=== PATIENT | female | born 1990 | race Caucasian/White ===

== ENCOUNTER 2016-08-26 20:30 | Emergency (ER) | payer MEDICAID ==
[~2016-08-26] VITALS: Ht 157.5 cm; Wt 111.0 kg
[~2016-08-26 20:30] MED LIST: CALC600T PO; FERR27TA PO; prenatals
[2016-08-26 20:34] VITALS: Ht 157.5 cm; Wt 111.0 kg
[2016-08-26] MEDS ORDERED: ACET500C5 PO (23:25)
[2016-08-26] MEDS ORDERED: IBUP-1542 PO (23:25)
[2016-08-26] MEDS ORDERED: PENICILLIN G BENZ 1.2 MIL UNIT SYG IM ONE (23:30)
--- NOTE | 2016-08-26 23:31 | ERD ---
ER Documentation Chief Complaint Date/Time DATE: 08/26/16 TIME: 23:26 Chief Complaint fever, cough, sore throat dizziness x 7 days HPI Patient is a 25-year-old female who presents to the ED with fever, sore throat, pain with swallowing and body aches 7 days. She states that she has had fevers of 101 at home. She has been taking Tylenol with relief of fevers. No fevers today. She denies cough, shortness of breath or difficulty breathing. She denies leg pain or swelling. She also complains of slight dizziness associated with her pain. She has had many sick contacts around her. She does not have difficulty speaking or swallowing. She is tolerating po fluids. She denies abdominal pain, nausea, vomiting or diarrhea. She denies recent travel. She denies other symptoms. ROS All systems reviewed and are negative except as per history of present illness. Medications Home Meds Active Scripts Oseltamivir Phosphate* (Tamiflu*) 75 Mg Capsule, 75 MG PO BID for 5 Days, CAP Prov:SUSIE BOO PA-C 08/27/16 Ibuprofen* (Motrin*) 600 Mg Tab, 600 MG PO Q6, #30 TAB Prov:ROGER ENGLE PA-C 08/26/16 Acetaminophen* (Tylophen*) 500 Mg Capsule, 1 CAP PO Q6H Y for PAIN AND OR ELEVATED TEMP, #20 CAP Prov:ROGER ENGLE PA-C 08/26/16 Reported Medications Calcium Carbonate (Calcium) 600 Mg Tablet, 600 MG PO DAILY 12/12/13 Ferrous Sulfate (Iron) 1 Tab Tablet, 1 TAB PO DAILY 12/12/13 [prenatals] No Conflict Check 05/12/13 Allergies Allergies: Coded Allergies: No Known Allergy (Unverified , 05/12/13) PMhx/Soc History of Surgery: Yes ( x1) Anesthesia Reaction: No Hx Neurological Disorder: No Hx Respiratory Disorders: No Hx Cardiac Disorders: No Hx Psychiatric Problems: No Hx Miscellaneous Medical Probl: Yes (strep throat) Hx Alcohol Use: No Hx Substance Use: No Hx Tobacco Use: No Smoking Status: Never smoker FmHx Family History: No coronary disease, No diabetes, No other Physical Exam Vitals Vital Signs Date Time Temp Pulse Resp B/P Pulse Ox O2 Delivery O2 Flow Rate FiO2 08/27/16 00:30 98.7 08/26/16 20:34 993.1 103 18 127/69 97 Physical Exam GENERAL: Well-developed, well-nourished female. Appears in no acute distress. HEAD: Normocephalic, atraumatic. ENT: Moist mucous membranes. No uvula deviation. No kissing tonsils, enlarged erythematous tonsils with. No exudates. TM clear, no erythema or drainage or bulging. no mastoid tenderness. NECK: Supple. No lymphadenopathy or thyromegaly. No meningismus. negative kernig. negative brudinski. LUNG: Clear to auscultation bilaterally. No rhonchi, wheezing, rales or coarse breath sounds. HEART: Regular rate and rhythm. No murmurs, rubs or gallops. Extremities: Equal pulses bilaterally. No peripheral clubbing, cyanosis or edema. No unilateral leg swelling. negative gene sign. NEUROLOGIC: Alert and oriented. Moving all four extremities. 5/5 strength in all extremities. Normal speech. Steady gait. CN 2 through 12 intact SKIN: Normal color. Warm and dry. No rashes or lesions. Capillary refill < 2 seconds Results 24 hrs Current Medications Medications (Trade) Dose Ordered Sig/Susan Route PRN Reason Start Time Stop Time Status Last Admin Dose Admin Penicillin G Benzathine (Bicillin La) 1,200,000 units ONCE ONCE IM 08/26/16 23:30 08/26/16 23:31 DC 08/26/16 23:58 Procedures/MDM ER COURSE: I kept the patient and/or family informed of laboratory and diagnostic imaging results throughout the emergency room course. MEDICATIONS: Penicillin G benzathine given in the ED. Patient tolerated medication well with no adverse reaction. MEDICAL DECISION MAKING: This is a 25-year-old female who presents with sore throat, body aches and fever. Vital signs were reviewed. Patient is afebrile. Patient is not hypoxic. She is not toxic and mildly ill-appearing. Patient likely has pharyngitis versus tonsillitis. Low suspicion for peritonsillar abscess, strep pharyngitis , mononucleosis, dental abscess. Low suspicion for pneumonia, PE, pneumothorax , ACS, epiglottitis, obstruction, TB, pertussis, meningitis, sepsis. I do not think a chest x-ray is warranted at this time as lung examination is within normal limits and patient does not have a cough. Patient has a pulse of 102, likely related to dehydration. I have low suspicion for PE or DVT as patient does not have risk factors, no leg pain or swelling or recent travel and denies cough, sob or chest pain. DISCHARGE: At this time, patient is stable for discharge and outpatient management with no new complaints during the ER course. Patient was sent home with Tylenol and ibuprofen. Patient will be discharged home with instructions to recheck for new or worsening symptoms such as fever, nausea, weakness, LOC and to follow up with primary care in the next 1-2 days. Patient was advised to return to the ER for any new or worsening symptoms. Plan was discussed and patient and/or family understands and agrees. Home instructions were given. Departure Diagnosis: Primary Impression: Tonsillitis Condition: Stable Patient Instructions: When Your Child Has Pharyngitis or Tonsillitis Additional Instructions: Call your primary care doctor TOMORROW for an appointment during the next 1-2 days.See the doctor sooner or return here if your condition worsens before your appointment time. ROGER ENGLE PA-C Aug 26, 2016 23:31
[2016-08-27 00:30] VITALS: TEMP 98.7
[2016-08-27] MEDS ORDERED: OSLT75C PO (19:20)
== END 2016-08-27 00:28 | disposition home or self-care (01) ==
LOC: FTE 20:30
DX: J03.90 Acute tonsillitis, unspecified (principal)
CPT/HCPCS: 96372; J0561; Z7502

== ENCOUNTER 2016-08-27 17:38 | Emergency (ER) | payer MEDICAID ==
[~2016-08-27] VITALS: Ht 165.1 cm; Wt 112.1 kg
[~2016-08-27 17:38] MED LIST changes: +ACET500C5 PO; +IBUP-1542 PO
[2016-08-27 17:41] VITALS: Ht 165.1 cm; Wt 112.1 kg
[2016-08-27] MEDS ORDERED: KETOROLAC 30 MG INJ IM STA (18:28)
--- NOTE | 2016-08-27 18:38 | ERD ---
ER Documentation Chief Complaint Date/Time DATE: 08/27/16 TIME: 18:36 Chief Complaint HAS FLU,BODY ACHES,ST, COUGH, HERE YESTERDAY C/O SAME TREATED STREP PHARIN HPI This patient is a 25-year-old female with no significant medical history presenting to the emergency department for chills which began today. Additionally the patient reports myalgias which been ongoing for the past 7 days. The patient was seen here yesterday and was diagnosed with strep pharyngitis and given an injection of penicillin G. She states her throat is no longer hurting today however she did have the sudden onset chills. The patient did not have a flu shot this year. ROS All systems reviewed and are negative except as per history of present illness. Medications Home Meds Active Scripts Oseltamivir Phosphate* (Tamiflu*) 75 Mg Capsule, 75 MG PO BID for 5 Days, CAP Prov:SUSIE BOO PA-C 08/27/16 Ibuprofen* (Motrin*) 600 Mg Tab, 600 MG PO Q6, #30 TAB Prov:ROGER ENGLE PA-C 08/26/16 Acetaminophen* (Tylophen*) 500 Mg Capsule, 1 CAP PO Q6H Y for PAIN AND OR ELEVATED TEMP, #20 CAP Prov:ROGER ENGLE PA-C 08/26/16 Reported Medications Calcium Carbonate (Calcium) 600 Mg Tablet, 600 MG PO DAILY 12/12/13 Ferrous Sulfate (Iron) 1 Tab Tablet, 1 TAB PO DAILY 12/12/13 [prenatals] No Conflict Check 05/12/13 Allergies Allergies: Coded Allergies: No Known Allergy (Unverified , 05/12/13) PMhx/Soc History of Surgery: Yes ( x1) Anesthesia Reaction: No Hx Neurological Disorder: No Hx Respiratory Disorders: No Hx Cardiac Disorders: No Hx Psychiatric Problems: No Hx Miscellaneous Medical Probl: Yes (strep throat) Hx Alcohol Use: No Hx Substance Use: No Hx Tobacco Use: No FmHx Noncontributory for chief complaint Physical Exam Vitals Vital Signs Date Time Temp Pulse Resp B/P Pulse Ox O2 Delivery O2 Flow Rate FiO2 08/27/16 17:41 98.5 99 20 130/72 99 Physical Exam INITIAL VITAL SIGNS: Reviewed by me GENERAL: The patient is well developed and appropriate for usual state of health in no apparent distress HEENT: Pupils equal, round, and reactive to light. EOMI. There is no scleral icterus. The throat is erythematous with mild tonsillar hypertrophy but no exudate. NECK: C-spine is soft and supple, there is no meningismus. There is no cervical lymphadenopathy. LUNGS: Clear to auscultation bilaterally. There are no rales, wheezes or rhonchi. HEART: Regular rate and rhythm, no murmurs, clicks, rubs or gallops. ABDOMEN: Soft, non-tender, non-distended. There are bowel sounds in all four quadrants. No rebound or guarding. EXTREMITIES: There is no peripheral cyanosis or edema. No focal swelling or erythema. NEUROLOGICAL: The patient moves all four extremities with 5/5 strength. Cranial nerves II - XII are intact. Normal gait. Alert and oriented SKIN: There is no apparent rash or petechiae. HEME/LYMPHATIC: There is no evidence of excessive bruising or lymphedema. PSYCHIATRIC: The patient does not appear anxious or depressed. Results 24 hrs Current Medications Medications (Trade) Dose Ordered Sig/Susan Route PRN Reason Start Time Stop Time Status Last Admin Dose Admin Ketorolac Tromethamine (Toradol) 30 mg ONCE STAT IM 08/27/16 18:28 08/27/16 18:30 DC 08/27/16 19:25 Procedures/MDM Chest xray 1 view: No acute cardiopulmonary abnormality. MDM: 25-year-old female presents to the emergency department for acute chills and body aches. She was treated here yesterday with penicillin G for strep pharyngitis. She returns to the department today complaining of the chills and body aches as well as rib pain on coughing. Chest x-ray shows no acute cardiopulmonary abnormality. I believe the patient's symptoms are related to influenza illness based off the history and physical examination. The patient was treated with Toradol in the department for body aches and was feeling improved. The patient was given a prescription for Tamiflu as she is within the 48 hour window for treatment. The patient was advised to follow-up with her primary care physician. The patient's questions and concerns were addressed. The patient agrees with the plan and understands her diagnosis. Departure Diagnosis: Primary Impression: Influenza Condition: Stable Patient Instructions: Influenza (Adult) Additional Instructions: Follow-up with your primary care physician within 1 week. Return to the emergency department immediately should you have any new or worsening symptoms, uncontrolled fevers, or other unexplained symptoms. Take all medications as directed. SUSIE BOO PA-C Aug 27, 2016 18:37
--- NOTE | 2016-08-27 19:13 | RADRPT ---
PROCEDURE: XR Chest. CLINICAL INDICATION: Cough TECHNIQUE: Single frontal chest x-ray. COMPARISON: None. FINDINGS: The lungs are adequately expanded and clear. There is no focal consolidation, pleural effusion, or pneumothorax. The heart and mediastinal contours are unremarkable. Bones are unremarkable. There a re no acute fractures. RPTAT: ZZ IMPRESSION: No acute cardiopulmonary abnormality. .Betsy Camargo MD, MD Date Time Electronically viewed and signed by .Betsy Camargo MD, on 08/27/2016 19:12 .T/
[2016-08-27] MEDS ORDERED: OSLT75C PO (19:20)
[2016-08-27 19:57] VITALS: BP 124/58; PULSE 104; RESP 18
== END 2016-08-27 19:57 | disposition home or self-care (01) ==
LOC: FTE 17:38
DX: R68.83 Chills (without fever) (principal); R07.81 Pleurodynia; R05 Cough
CPT/HCPCS: 71010; 96372; J1885; Z7502

== ENCOUNTER 2017-10-20 15:28 | Emergency (ER) | END 2017-10-20 18:32 | disposition home or self-care (01) ==

== ENCOUNTER 2018-05-19 20:30 | Emergency (ER) | END 2018-05-19 21:20 | disposition home or self-care (01) ==